=== PATIENT | female | born 1960 | race Caucasian/White ===

== ENCOUNTER 2018-01-28 23:53 | Emergency (ER) | payer MEDICARE ==
[~2018-01-28 23:53] MED LIST: EXALGO8 MG PO; GOOD SENSE ASPI81 M1 PO; JANUVIA 100MG100 MG PO; LANTUS PEN100 U/ML SQ; OXYCODONE30 MG PO; OXYCONTIN CR20 MG PO; XANAX1 MG PO; ZESTRIL 10MG10 MG PO
[2018-01-29] MEDS ORDERED: FLUCONAZOLE100 MG PO (00:07)
[2018-01-29] MEDS ORDERED: LEVOTHYROXINE0.05 MG PO (00:07)
[2018-01-29] MEDS ORDERED: LASIX 80MG TABL80 MG (00:07)
[2018-01-29] MEDS ORDERED: PROZAC40 M1 PO (00:08)
[2018-01-29] MEDS ORDERED: LAMOTRIGINE100 M3 PO (00:08)
[2018-01-29] MEDS ORDERED: PERCOCET 325 MG1 TA2 PO (00:41)
[2018-01-29 00:50] VITALS: BP 140/75
== END 2018-01-29 00:50 | disposition home or self-care (01) ==
LOC: ED 23:53
DX: S05.02XA Injury of conjunctiva and corneal abrasion without foreign body, left eye, initial encounter (principal); W22.8XXA Striking against or struck by other objects, initial encounter; Y92.59 Other trade areas as the place of occurrence of the external cause; E11.9 Type 2 diabetes mellitus without complications; I10 Essential (primary) hypertension; Z95.1 Presence of aortocoronary bypass graft